=== PATIENT | female | born 1950 | race Caucasian/White ===

== ENCOUNTER 2017-01-02 13:54 | Emergency (ER) | payer OTHER ==
[~2017-01-02] VITALS: Ht 149.9 cm; Wt 93.0 kg
[~2017-01-02 13:54] MED LIST: BACTRIM DS TAB1 EACH PO
[2017-01-02 14:35] VITALS: BP 133/67
== END 2017-01-02 14:50 | disposition home or self-care (01) ==
LOC: ER 13:54
DX: S20.212A Contusion of left front wall of thorax, initial encounter (principal); I10 Essential (primary) hypertension; K21.9 Gastro-esophageal reflux disease without esophagitis; F20.9 Schizophrenia, unspecified; Z88.1 Allergy status to other antibiotic agents; Z88.4 Allergy status to anesthetic agent; Z88.8 Allergy status to other drugs, medicaments and biological substances; V89.2XXA Person injured in unspecified motor-vehicle accident, traffic, initial encounter; Y93.89 Activity, other specified; Y92.89 Other specified places as the place of occurrence of the external cause; Y99.8 Other external cause status

== ENCOUNTER 2017-04-02 16:31 | Emergency (ER) | payer OTHER ==
[~2017-04-02] VITALS: Ht 149.9 cm; Wt 93.4 kg
[2017-04-02] MEDS ORDERED: ERYTHROMYCIN E3.5 G3 OPHTHALMIC (18:53)
== END 2017-04-02 19:21 ==
LOC: ER 16:31
DX: H10.9 Unspecified conjunctivitis (principal); F20.9 Schizophrenia, unspecified; K21.9 Gastro-esophageal reflux disease without esophagitis; I10 Essential (primary) hypertension; K64.9 Unspecified hemorrhoids; Z88.1 Allergy status to other antibiotic agents; Z88.4 Allergy status to anesthetic agent

== ENCOUNTER 2017-04-24 13:53 | Emergency (ER) | payer OTHER ==
[~2017-04-24] VITALS: Ht 149.9 cm; Wt 108.9 kg
--- NOTE | ~2017-04-24 | EKG ---
[place] [address] [facility] [email or web address] [address] ELECTROCARDIOGRAM REPORT Name: KIM MILNER Room #: REG Mihaela#: [id number] Admission: 04/24/17 Attend Phys: Discharge: Date of : 50 Report #: [id number] THIS REPORT FOR: //name// [facility] ED Test Date: 2017-04-24 Test Time: 15:19:15 Pat Name: KIM MILNER Department: Room: Gender: F Lead Consultant: VENKAT : 1950 Requested By: Nadeem Bradley Order Number: [id number] MD: Patrick Silva Measurements Intervals [place] Rate: 81 P: 58 GA: 128 QRS: 32 QRSD: 93 T: -27 QT: 369 QTc: 429 Interpretive Statements Sinus rhythm Probable left atrial enlargement Borderline repolarization abnormality No previous ECG available for comparison Electronically Signed On 04-24-2017 16:31:03 COMMISSIONING EDITOR by Patrick Silva [email or web address] <ELECTRONICALLY SIGNED> By: Patrick Silva MD, [facility] 04/24/17 1631 1519 1519 Patrick Silva MD, FACC /EPI
[~2017-04-24 13:53] MED LIST changes: +ERYTHROMYCIN E3.5 G3 OPHTHALMIC
[2017-04-24 16:37] LABS: HEMATOCRIT 41.7 % (37.0-47.0); HEMOGLOBIN 13.9 gm/dL (12.0-15.0); MCH 29.1 pg (26.0-34.0); MCHC 33.3 g/dL (28.0-37.0); MCV 87.2 fL (80.0-100.0); RBC 4.78 mil/uL (4.20-5.00); RDW 13.4 % (10.5-14.5); WBC 8.9 thou/uL (4.0-11.0)
[2017-04-24 16:45] LABS: ANION GAP 10 mmol/L (7-16); BUN 17 mg/dL (7-18); CALCIUM 8.9 mg/dL (8.5-10.1); CHLORIDE 103 mmol/L (98-107); CO2 29 mmol/L (21-32); CREATININE 1.2 mg/dL (0.6-1.0); GLUCOSE 106 mg/dL (74-106); POTASSIUM 3.8 mmol/L (3.5-5.1); SODIUM 142 mmol/L (136-145)
[2017-04-24 16:54] LABS: ALBUMIN 3.6 g/dL (3.4-5.0); SGOT 13 U/L (15-37); SGPT 18 U/L (30-65); TOTAL BILIRUBIN 0.1 mg/dL (<0.1-1.0); TOTAL PROTEIN 7.2 g/dL (6.4-8.2); TROPONIN-I < 0.04 ng/mL (<0.06)
[2017-04-24] MEDS ORDERED: ANTIVERT25 MG PO (18:44)
== END 2017-04-24 19:06 | disposition home or self-care (01) ==
LOC: ER 13:53
PROVIDERS: Emergency Medicine
DX: R42 Dizziness and giddiness (principal); H54.7 Unspecified visual loss; I10 Essential (primary) hypertension; K21.9 Gastro-esophageal reflux disease without esophagitis; F25.9 Schizoaffective disorder, unspecified; Z88.1 Allergy status to other antibiotic agents; Z88.8 Allergy status to other drugs, medicaments and biological substances